=== PATIENT | male | born 1955 ===

== ENCOUNTER 2022-03-20 06:00 | Day surgery (SDC) | payer BC, OTHER ==
[2022-03-20] MEDS ORDERED: Propofol 200 MG/20 ML SDV ONE (07:29)
[2022-03-20] MEDS ORDERED: fentaNYL 100 MCG/2 ML SDV ONE (07:30)
[2022-03-20] MEDS ORDERED: Lidocaine 2% 5 ML SDV ONE (09:05)
[2022-03-20] MEDS ORDERED: Lactated Ringers 1,000 ML IV ONE (09:20)
== END 2022-03-20 10:40 ==
LOC: MW.SDS 06:00
PROVIDERS: ATTEND Surgery
DX: Z12.11 Encounter for screening for malignant neoplasm of colon (principal); I48.91 Unspecified atrial fibrillation; I50.9 Heart failure, unspecified; E78.5 Hyperlipidemia, unspecified; Z79.899 Other long term (current) drug therapy; Z98.890 Other specified postprocedural states
CPT/HCPCS: 45378; J2704; J3010; J7120; 00812